=== PATIENT | male | born 1965 | race Two or more races ===

== ENCOUNTER 2024-12-25 10:51 | Emergency (ER) | payer OTHER ==
[~2024-12-25] VITALS: Ht 175.3 cm; Wt 112.7 kg
--- NOTE | 2024-12-25 11:16 | ED.PDOC ---
Musculoskeletal HPI Comments 59 year old male with no past medical history presents to the emergency department with a chief complaint of Lt 2nd finger injury onset 1 week. Patient states he was using a screw gun, injured LT 2nd finger with screw gun, since then has been experiencing swelling, discomfort with pressure sensation, rates pain 5/10. Last tetanus vaccine was over 5 years ago. No other symptoms or modifying factors present at this time. Denies drainage Denies numbness/tingling Denies fevers chills night sweats nausea vomiting Denies changes, shortness of breath Chief Complaint: Upper Extremity Time Seen by MD: 11:10 Reviewed Notes: Nurses Notes, Medications, Allergies Allergies: Coded Allergies: NO KNOWN ALLERGIES (Unverified , 12/25/24) Home Meds Active Scripts Ibuprofen (Ibuprofen) 600 Mg Tab, 1 TAB PO TID for 10 Days, #30 TAB 0 Refills Prov:VARGAS MAGANA NP 12/25/24 Ciprofloxacin Hcl (Cipro) 500 Mg Tab, 1 TAB PO BID for 10 Days, #20 TAB 0 Refills Prov:VARGAS MAGANA SPEECH PATHOLOGY ASSISTANT 12/25/24 Information Source: Patient Mode of Arrival: Ambulatory Location: Left Extremity Location: Finger 2 Timing: Weeks Prehospital treatment: None Severity: Moderate Able to Move Extremity: Yes Pain: Moderate Mechanism: Blunt Trauma Circumstances: Other Onset of Symptoms: After Trauma Symptoms: Swelling, Pain DVT Risk Factors: NONE Last Tetanus: > 5 Years Associated signs and symptoms: Other (LT 2nd digit swelling) Past Medical History PAST MEDICAL HISTORY: Denies Surgical History: Denies all surgeries Family History Family History: Reviewed,noncontributory to illness, No family hx of Cancer, No family hx of DM, No family hx of Heart alireza, No family hx of HTN, No family hx ofKidney alireza, No family hx of Liver alireza, No family hx of Lung alireza, No family hx of Stroke Social History Smoker: Non-Smoker Alcohol: Denies ETOH Use Drugs: Denies Drug Use Lives In: Home All Other Systems: Reviewed and Negative (as per HPI) Physical Exam General Appearance: Normal HEENT: Normal ENT Inspection, Pharynx Normal, TMs Normal Neck: Full Range of Motion, Non-Tender, Normal, Normal Inspection Respiratory: Chest Non-Tender, Lungs Clear, No Accessory Muscle Use, No Respiratory Distress, Normal Breath Sounds Cardiovascular: No Edema, No JVD, No Murmur, No Gallop, Normal Peripheral Pulses, Regular Rate/Rhythm Breast Exam: Deferred Gastrointestinal: No Organomegaly, Non Tender, No Pulsatile Mass, Normal Bowel Sounds, Soft Genitalia: Deferred Pelvic: Deferred Rectal: Deferred Extremities: No calf tenderness, Normal capillary refill, Normal inspection, Normal range of motion, Non-tender, No pedal edema Musculoskeletal : Location: Left Extremity Location: Finger 2 (Visible swelling to the 2nd phalanx in addition to a puncture wound to the volar aspect of the legs in between the PIP in the D IP. No signs of active bleeding nor discharge. Full range of motion of the MCP however the patient is unable to bend the PIP in the D IP due to pain. TTP. Refill less than 3 seconds and neurovascular sensation intact. Radial pulses 2+) Apperance: Normal Neurologic: Alert, animal anatomy teacher II-XII nml as Tested, No Motor Deficits, Normal Affect, Normal Mood, No Sensory Deficits Cerebellar Function: Normal Reflexes: Normal Skin: Dry, Normal Color, Warm Lymphatic: No Adenopathy Was a procedure done? Was a procedure done?: No Differential Diagnosis EXT Differential Diagnosis: Cellulitis, Fracture, Sprain X-Ray, Labs, Meds, VS Vital Signs Date Time Temp Pulse Resp B/P (MAP) Pulse Ox O2 Delivery O2 Flow Rate FiO2 12/25/24 12:16 98.4 90 16 148/95 (112) 96 98.4 12/25/24 12:16 90 17 96 Room Air 12/25/24 11:07 97.9 80 18 142/99 (113) 96 97.9 Lab Test 12/25/24 11:30 12/25/24 11:13 Range/Units White Blood Count 10.9 H 4.4-10.8 10^3/uL Red Blood Count 5.03 4.5-5.90 10^6/uL Hemoglobin 16.5 13.5-17.5 g/dL Hematocrit 47.7 41.0-53.0 % Mean Corpuscular Volume 94.8 80.0-100.0 fL Mean Corpuscular Hemoglobin 32.8 H 28.0-32.0 pg Mean Corpuscular Hemoglobin Concent 34.5 32.0-36.0 g/dL Red Cell Distribution Width 13.7 11.8-14.3 % Platelet Count 238 140-450 10^3/uL Mean Platelet Volume 8.4 6.9-10.8 fL Neutrophils (%) (Auto) 59.5 37.0-80.0 % Lymphocytes (%) (Auto) 25.7 10.0-50.0 % Monocytes (%) (Auto) 8.2 0.0-12.0 % Eosinophils (%) (Auto) 5.1 0.0-7.0 % Basophils (%) (Auto) 1.5 0.0-2.0 % Neutrophils # (Auto) 6.5 1.6-8.6 10 ^3/uL Lymphocytes # (Auto) 2.8 0.4-5.4 10 ^3/uL Monocytes # (Auto) 0.9 0-1.3 10 ^3/uL Eosinophils # (Auto) 0.6 0-0.8 10 ^3/uL Basophils # (Auto) 0.2 0-0.2 10 ^3/uL Nucleated Red Blood Cells 0.0 % Erythrocyte Sedimentation Rate 14 0-20 mm/hr Sodium Level 141 136-145 mmol/L Potassium Level 4.4 3.5-5.1 mmol/L Chloride Level 104 98-107 mmol/L Carbon Dioxide Level 30 20-31 mmol/L Anion Gap 7 5-15 Blood Urea Nitrogen 10 9-23 mg/dL Creatinine 1.05 0.700-1.30 mg/dL Glomerular Filtration Rate Calc 81 >90 mL/min BUN/Creatinine Ratio 9.5 L 10.0-20.0 Serum Glucose 85 74-106 mg/dL Calcium Level 11.0 H 8.7-10.4 mg/dL C-Reactive Protein High Sensitivity 1.55 H <1.0 mg/dL Urine Color Light-yellow Yellow Urine Clarity Clear Clear Urine pH 6.5 5.0-9.0 Urine Specific [place] 1.012 1.001-1.035 Urine Protein Negative Negative Urine Ketones Negative Negative Urine Blood Negative Negative /uL Urine Nitrite Negative Negative Urine Bilirubin Negative Negative Urine Urobilinogen Normal Negative mg/dL Urine Leukocyte Esterase Negative Negative /uL Urine RBC <1 0 - 3 /hpf Urine Microscopic WBC < 1 0-3 /HPF Urine Squamous Epithelial Cells None seen <5 /hpf Urine Bacteria None seen None Seen /hpf Urine Glucose Normal Normal mg/dL Current Medications Medications (Trade) Dose Ordered Sig/Fracisco Route Start Time Stop Time Status Last Admin Diphtheria/ Tetanus/Acell Pertussis (Boostrix T-Dap) 0.5 ml ONCE ONCE IM 12/25/24 16:30 12/25/24 16:51 DC 12/25/24 16:[address] [address] Ph: [phone] DIAGNOSTIC IMAGING Diagnostic Imaging Report : [id number] Signed PATIENT: ISABELLA SPRING ACCT: [id number] UNIT: [id number] : 1965 LOC: ER ROOM / BED: / AGE / SEX: 59 / M ADM STATUS: REG ER SERVICE [id number] ORDERING PHYSICIAN: VARGAS MAGANA NP PROCEDURE(s): UECIR - LT UPPER EXTREMITY W CONTRAS REASON: cellulitis 2nd phalanx. unable to bend pip and dip. r/o absc ORDER NUMBER(s): [id number], ACCESSION NUMBER(s): [id number] INDICATION: cellulitis 2nd phalanx. unable to bend pip and dip. r/o absc COMPARISON: None TECHNIQUE: CT of the left hand was performed without and with contrast. Volume transverse images were obtained and reconstructed in multiple planes using bone and soft tissue algorithms. 100 cc Omnipaque 300 Radiation Dose Information: CT Dose: CTDI volume is 7.75 mGy. Dose-length product is 241 mGy*cm FINDINGS: The alignment is normal. The joint spaces are normal. There is no fracture, dislocation or aggressive osseous lesion.. There is no joint effusion. Swelling of the soft tissues flexor tendon sheath without identifiable abscess. Imbedded in the soft tissues along the palmar surface of the 2nd metatarsal head is a well defined bony density measuring approximately 4.5 mm in length IMPRESSION: 1. There is soft tissue swelling along the flexor tendon sheath of the 2nd digit without discernible abscess. No cortical destruction of bone to suggest osteomyelitis. Well corticated bony density adjacent to the 2nd metacarpal head may represent an accessory ossicle (although a radiopaque foreign body could appear similar) 2. All CT scans at this medical facility are performed using dose modulation techniques as appropriate to a performed exam including the following: Automated exposure control was utilized; adjustment of the MA and/or KV according to patient size; and use of iterative reconstruction technique. ATED BY: BALBINA CARTER MD DICTATED DATE/TIME: 12/25/241609 SIGNED BY: BALBINA CARTER MD SIGNED DATE/TIME: 12/25/241609 CC: X-Ray, Labs, Meds, VS Comment 59 year old male with no past medical history presents to the emergency department with a chief complaint of Lt 2nd finger injury onset 1 week. Patient arrives alert and oriented, ABC's intact, afebrile, vital signs stable, saturating well in room air CBC was ordered to exclude anemia, blood loss, or infection. BMP was ordered to exclude electrolyte abnormalities, renal failure, dehydration, hyperglycemia Urinalysis was ordered to rule out UTI or hematuria. ESR was ordered. Diagnostic imaging ordered by me and results interpreted by radiology : CT LT UPPER EXTREMITY W CONTRAST: IMPRESSION: 1. There is soft tissue swelling along the flexor tendon sheath of the 2nd digit without discernible abscess. No cortical destruction of bone to suggest osteomyelitis. Well corticated bony density adjacent to the 2nd metacarpal head may represent an accessory ossicle (although a radiopaque foreign body could appear similar) 2. All CT scans at this medical facility are performed using dose modulation techniques as appropriate to a performed exam including the following: Automated exposure control was utilized; adjustment of the MA and/or KV according to patient size; and use of iterative reconstruction technique. The area of infection does not appear to have any loculations/induration based on physical exam. The patient did not require an incision and drainage. Patient well appearing. VSS. Given History, Exam, and Workup I have low suspicion for Necrotizing Fasciitis, Abscess, Osteomyelitis, DVT or other emergent problem as a cause for this presentation. Low risk for treatment failure based on history. The patient was advised to return 24-48 hours for wound check. Sooner if symptoms worsen. Patient is stable for discharge at this time. External notes reviewed. Test results and diagnostic imaging interpreted. All diagnostic findings, discharge care, education and instructions provided Follow-up with PCP in 2 to 3 days Patient verbalized understanding and agreed to treatment plan Vital signs stable, afebrile, no acute distress noted Patient ambulatory with strong steady gait Advised to return precautions for any new or worsening symptoms, return to ER immediately for re-evaluation Patient is aware that the purpose of this visit was for an acute medical emergency requiring emergent stabilization. Chronic conditions, including malignancies have not been ruled out. Patient is instructed to follow up with PCP as directed and discharge instructions for continued care and workup. If unable to arrange follow-up, patient is to return to the emergency department for reassessment. Patient (parent or legal guardian if applicable) was given verbal and written discharge instructions and acknowledges understanding. Additional MDM Review of External, Non-ED records: External records reviewed. Discussion with independent historian (EMS, family) history obtained from the patient/parents (if applicable) at bedside Chronic conditions affecting care: None Social determinants of health affecting care: None Consideration of admission (observation or admission): I considered escalation of care to admission for this patient, however given the reassuring workup, the patient is safe for outpatient management. Time of 1ST Reevaluation: 11:40 Reevaluation 1ST: Improved Patient Education/Counseling: Diagnosis, Treatment Family Education/Counseling: No Family Present Departure 1 Departure Time of Disposition: 16:18 Impression: Primary Impression: Cellulitis of left finger Disposition: 01 HOME / SELF CARE / HOMELESS Condition: Fair e-Prescriptions Ibuprofen (Ibuprofen) 600 Mg Tab 1 TAB PO TID for 10 Days, #30 TAB 0 Refills Prov: VARGAS MAGANA NP 12/25/24 Ciprofloxacin Hcl (Cipro) 500 Mg Tab 1 TAB PO BID for 10 Days, #20 TAB 0 Refills Prov: VARGAS MAGANA SPEECH PATHOLOGY ASSISTANT 12/25/24 Critical Care Note Critical Care Time?: No Stability Stability form required: No Heart Score Heart Score: Heart Score Response (Comments) Value History N/A 0 EKG N/A 0 Age N/A 0 Risk Factors N/A 0 Troponin N/A 0 Total 0 I personally scribed for VARGAS MAGANA SPEECH PATHOLOGY ASSISTANT ([email or web address]) on 12/25/24 at 11:16. Electronically submitted by Iris Jarrett ([email or web address]). I personally scribed for VARGAS MAGANA NP ([email or web address]) on 12/25/24 at 11:17. Electronically submitted by Iris Jarrett ([email or web address]). I personally scribed for VARGAS MAGANA SPEECH PATHOLOGY ASSISTANT ([email or web address]) on 12/25/24 at 12:08. Electronically submitted by Iris Jarrett ([email or web address]). I personally scribed for VARGAS MAGANA NP ([email or web address]) on 12/25/24 at 13:05. Electronically submitted by Iris Jarrett ([email or web address]). I personally scribed for VARGAS MAGANA SPEECH PATHOLOGY ASSISTANT ([email or web address]) on 12/25/24 at 16:16. Electronically submitted by Iris Jarrett ([email or web address]). VARGAS MAGANA NP Dec 25, 2024 11:16
[2024-12-25 11:56] LABS: Hematocrit 47.7 % (41.0-53.0); Hemoglobin 16.5 g/dL (13.5-17.5); Mean Corpuscular Hemoglobin 32.8 pg (28.0-32.0); Mean Corpuscular Volume 94.8 fL (80.0-100.0); Nucleated Red Blood Cells % 0.0 %
[2024-12-25 12:03] LABS: Chloride 104 mmol/L (98-107); Potassium 4.4 mmol/L (3.5-5.1); Sodium 141 mmol/L (136-145)
[2024-12-25 12:04] LABS: Anion Gap 7 (5-15); Carbon Dioxide 30 mmol/L (20-31)
[2024-12-25 12:06] LABS: Calcium 11.0 mg/dL (8.7-10.4)
[2024-12-25 12:09] LABS: BUN/Creatinine Ratio 9.5 (10.0-20.0); Blood Urea Nitrogen 10 mg/dL (9-23); Glucose 85 mg/dL (74-106)
[2024-12-25 12:16] VITALS: BP 148/95; PULSE 90; RESP 17; TEMP 98.4; O2SAT 96
[2024-12-25 12:22] LABS: Urine Protein, UAD Negative (Negative)
[2024-12-25] MEDS: IOHEXOL 300 MG/ML 100ML BOTTLE IJ ONE (13:19)
--- NOTE | 2024-12-25 16:12 | DVH ---
INDICATION: cellulitis 2nd phalanx. unable to bend pip and dip. r/o absc COMPARISON: None TECHNIQUE: CT of the left hand was performed without and with contrast. Volume transverse images were obtained and reconstructed in multiple planes using bone and soft tissue algorithms. 100 cc Omnipaque 300 Radiation Dose Information: CT Dose: CTDI volume is 7.75 mGy. Dose-length product is 241 mGy*cm FINDINGS: The alignment is normal. The joint spaces are normal. There is no fracture, dislocation or aggressive osseous lesion.. There is no joint effusion. Swelling of the soft tissues flexor tendon sheath without identifiable abscess. Imbedded in the soft tissues along the palmar surface of the 2nd metatarsal head is a well defined bony density measuring approximately 4.5 mm in length IMPRESSION: 1. There is soft tissue swelling along the flexor tendon sheath of the 2nd digit without discernible abscess. No cortical destruction of bone to suggest osteomyelitis. Well corticated bony density adjac ent to the 2nd metacarpal head may represent an accessory ossicle (although a radiopaque foreign body could appear similar) 2. All CT scans at this medical facility are performed using dose modulation techniques as appropriat e to a performed exam including the following: Automated exposure control was utilized; adjustment of the MA and/or KV according to patient size; and use of iterative reconstruction technique.
[2024-12-25] MEDS ORDERED: IBUP-1454 PO (16:19)
[2024-12-25] MEDS ORDERED: CIPR-173 PO (16:19)
[2024-12-25] MEDS: TETANUS-DIPTH-ACEL PERTUSSIS 0.5ML SYR Tdap IM ONE (16:45)
== END 2024-12-25 16:51 | disposition home or self-care (01) ==
LOC: ER 11:00
DX: S69.82XA Other specified injuries of left wrist, hand and finger(s), initial encounter (principal); L03.012 Cellulitis of left finger; Z79.1 Long term (current) use of non-steroidal anti-inflammatories (NSAID); Z79.899 Other long term (current) drug therapy; X58.XXXA Exposure to other specified factors, initial encounter; Y93.89 Activity, other specified; Y92.89 Other specified places as the place of occurrence of the external cause; Y99.8 Other external cause status
CPT/HCPCS: 36415; 73201; 80048; 81001; 85025; 85652; 86141; 90471; 90715; 99285; Q9967